=== PATIENT | male | born 1990 | race Caucasian/White ===

== ENCOUNTER 2018-11-06 23:00 | Emergency (ER) | payer OTHER ==
[~2018-11-06] VITALS: Ht 185.4 cm; Wt 113.4 kg
[2018-11-06] MEDS ORDERED: OMEPRAZOLE40 MG PO (23:12)
[2018-11-06 23:27] LABS: URINE BILIRUBIN NEGATIVE (Negative); URINE BLOOD NEGATIVE (Negative); URINE CLARITY CLEAR; URINE COLOR YELLOW; URINE GLUCOSE-RANDOM 1+ (Negative); URINE KETONES TRACE (Negative); URINE LEUKOCYTES-REFLEX NEGATIVE (Negative); URINE NITRITE-REFLEX NEGATIVE (Negative); URINE PROTEIN NEGATIVE (Negative); URINE SPECIFIC GRAVITY >= 1.030 (1.005-1.030); URINE UROBILINOGEN 0.2 E.U./dl (0.2-1.0)
[2018-11-06 23:33] LABS: ABSOLUTE BASOPHILS 0.1 thou/uL (0.0-0.2); ABSOLUTE EOSINOPHILS 0.3 thou/uL (0.0-0.7); ABSOLUTE LYMPHOCYTES 4.2 thou/uL (0.8-5.3); ABSOLUTE MONOCYTES 0.6 thou/uL (0.0-1.2); ABSOLUTE NEUTROPHILS 5.3 thou/uL (1.6-8.1); BASOPHILS 0.7 %; EOSINOPHILS 3.2 %; HEMATOCRIT 41.3 % (42.0-52.0); HEMOGLOBIN 14.3 gm/dL (14.0-18.0); LYMPHOCYTES 40.2 %; MCH 29.9 pg (26.0-34.0); MCHC 34.6 g/dL (28.0-37.0); MCV 86.5 fL (80.0-100.0); MONOCYTES 5.6 %; MPV 8.7 fl. (7.2-11.1); NUCLEATED RBCS 0 /100WBC; PLATELET COUNT* 262 thou/uL (150-400); POLYS 50.3 %; RBC 4.77 mil/uL (4.50-6.00); WBC 10.4 thou/uL (4.0-11.0)
[2018-11-07 00:07] LABS: ALBUMIN 3.7 g/dL (3.4-5.0); POTASSIUM 3.8 mmol/L (3.5-5.1); TOTAL BILIRUBIN 0.3 mg/dL (<0.1-1.0); TOTAL PROTEIN 7.2 g/dL (6.4-8.2)
[2018-11-07] MEDS ORDERED: METFORMIN HCL500 MG PO (00:16)
[2018-11-07] MEDS ORDERED: MECLIZINE HCL25 MG PO (00:18)
[2018-11-07 01:27] VITALS: BP 152/93
[2018-11-07 16:06] LABS: GLYCOHEMOGLOBIN (HGB A1C) 7.9 % (4.8-5.6)
== END 2018-11-07 01:27 | disposition home or self-care (01) ==
LOC: M.ERS 23:00
PROVIDERS: Emergency Medicine; Nurse Practitioner
DX: E11.9 Type 2 diabetes mellitus without complications (principal); R42 Dizziness and giddiness; R53.1 Weakness; K21.9 Gastro-esophageal reflux disease without esophagitis

== ENCOUNTER 2018-11-13 16:20 | Emergency (ER) | payer OTHER ==
[~2018-11-13] VITALS: Ht 185.4 cm; Wt 113.4 kg
[~2018-11-13 16:20] MED LIST: MECLIZINE HCL25 MG PO; METFORMIN HCL500 MG PO; OMEPRAZOLE40 MG PO
[2018-11-13] MEDS ORDERED: ALEVE220 MG PO (16:43)
[2018-11-13 17:03] LABS: BE -0.2 mmol/L (-2 to +3); PCO2 36.6 mmHg (35.0-45.0); PO2 101.5 mmHg (75.0-100.0); pH 7.429 (7.340-7.450)
[2018-11-13 17:04] LABS: ABSOLUTE EOSINOPHILS 0.1 thou/uL (0.0-0.7); ABSOLUTE LYMPHOCYTES 1.5 thou/uL (0.8-5.3); ABSOLUTE MONOCYTES 0.7 thou/uL (0.0-1.2); ABSOLUTE NEUTROPHILS 9.1 thou/uL (1.6-8.1); BASOPHILS 0.4 %; EOSINOPHILS 0.9 %; HEMATOCRIT 46.8 % (42.0-52.0); LYMPHOCYTES 13.1 %; MCH 29.9 pg (26.0-34.0); MCHC 34.3 g/dL (28.0-37.0); MCV 87.2 fL (80.0-100.0); MONOCYTES 5.9 %; MPV 8.8 fl. (7.2-11.1); NUCLEATED RBCS 0 /100WBC; PLATELET COUNT* 287 thou/uL (150-400); POLYS 79.7 %; RBC 5.36 mil/uL (4.50-6.00); WBC 11.5 thou/uL (4.0-11.0)
[2018-11-13 17:10] LABS: CALCIUM 8.9 mg/dL (8.5-10.1); POTASSIUM 3.8 mmol/L (3.5-5.1)
[2018-11-13 17:14] LABS: ALBUMIN 4.1 g/dL (3.4-5.0); MAGNESIUM 1.7 mg/dL (1.8-2.4); TOTAL BILIRUBIN 0.6 mg/dL (<0.1-1.0); TOTAL PROTEIN 8.1 g/dL (6.4-8.2)
[2018-11-13 18:48] VITALS: BP 124/99
--- NOTE | 2018-11-14 14:03 | EKG ---
[place] [address] ELECTROCARDIOGRAM REPORT Name: JOELLE ZUÑIGA III [id number] Admission: 11/13/18 Attend Phys: Discharge: 11/13/18 Date of : [birth year] Report #: [id number] THIS REPORT FOR: //name// [facility] ED Test Date: 2018-11-13 Test Time: 16:38:38 Pat Name: JOELLE ZUÑIGA Department: Room: Gender: M Mechanical Shop Laborer: : 1990 Requested By: Ilda Novak Order Number: [id number] MD: Faustino Nino Measurements Intervals [place] Rate: 94 P: 45 TX: 159 QRS: 32 QRSD: 79 T: 49 QT: 317 QTc: 397 Interpretive Statements Sinus rhythm Probable left atrial enlargement No previous ECG available for comparison Electronically Signed On 11-14-2018 14:02:56 CDT by Faustino Nino [email or web address] <ELECTRONICALLY SIGNED> By: Faustino Nino MD, [facility] 11/14/18 1402 [id number] [id number] Faustino Nino MD, FACC /EPI
== END 2018-11-13 18:50 | disposition home or self-care (01) ==
LOC: M.ERS 16:20
PROVIDERS: Personal Emergency Response Attendant
DX: E11.649 Type 2 diabetes mellitus with hypoglycemia without coma (principal); K21.9 Gastro-esophageal reflux disease without esophagitis

== ENCOUNTER 2019-09-08 21:41 | Emergency (ER) | payer OTHER ==
[~2019-09-08] VITALS: Ht 185.4 cm; Wt 108.9 kg
[~2019-09-08 21:41] MED LIST changes: +ALEVE220 MG PO
[2019-09-08] MEDS ORDERED: SIMVASTATIN80 MG PO ×2 (21:53→21:54)
[2019-09-08] MEDS ORDERED: SERTRALINE HCL100 MG PO (21:54)
[2019-09-08 22:19] LABS: ABSOLUTE EOSINOPHILS 0.2 thou/uL (0.0-0.7); ABSOLUTE LYMPHOCYTES 3.3 thou/uL (0.8-5.3); ABSOLUTE MONOCYTES 0.8 thou/uL (0.0-1.2); ABSOLUTE NEUTROPHILS 5.8 thou/uL (1.6-8.1); BASOPHILS 0.4 %; EOSINOPHILS 2.2 %; HEMATOCRIT 42.5 % (42.0-52.0); HEMOGLOBIN 14.6 gm/dL (14.0-18.0); LYMPHOCYTES 32.9 %; MCH 29.9 pg (26.0-34.0); MCHC 34.3 g/dL (28.0-37.0); MCV 87.2 fL (80.0-100.0); MONOCYTES 7.7 %; MPV 8.4 fl. (7.2-11.1); NUCLEATED RBCS 0 /100WBC; PLATELET COUNT* 312 thou/uL (150-400); POLYS 56.8 %; RBC 4.88 mil/uL (4.50-6.00); RDW-CV 13.5 % (10.5-14.5); WBC 10.2 thou/uL (4.0-11.0)
[2019-09-08 22:25] LABS: CALCIUM 8.4 mg/dL (8.5-10.1); CREATININE 1.2 mg/dL (0.6-1.3); POTASSIUM 3.4 mmol/L (3.5-5.1)
[2019-09-08 22:29] LABS: ALBUMIN 4.2 g/dL (3.4-5.0); MAGNESIUM 2.1 mg/dL (1.8-2.4); TOTAL BILIRUBIN 0.4 mg/dL (<0.1-1.0); TOTAL PROTEIN 7.6 g/dL (6.4-8.2)
[2019-09-08] MEDS ORDERED: CIPRODEX OTIC7.5 ML OTIC (23:16)
[2019-09-08] MEDS ORDERED: CIPRO HC OTIC S10 ML OTIC ×2 (23:19→23:21)
[2019-09-08 23:24] VITALS: BP 151/96
--- NOTE | 2019-09-09 15:42 | EKG ---
[place] [address] ELECTROCARDIOGRAM REPORT Name: JOELLE ZUÑIGA Pily ANNY Room: [facility]#: [id number] Admission: 09/08/19 Attend Phys: Discharge: 09/08/19 Date of : [birth year] Date of Service: 09/08/192143 Report #: [id number] THIS REPORT FOR: //name// [facility] ED Test Date: 2019-09-08 Test Time: 21:44:51 Pat Name: JOELLE ZUÑIGA Department: Room: Gender: Metal Pickling Equipment Operator: : 1990 Requested By: Rosalie Sam Order Number: [id number] MD: Baudilio Pa Measurements Intervals [place] Rate: 88 P: 47 CT: 154 QRS: 40 QRSD: 93 T: 40 QT: 368 QTc: 446 Interpretive Statements Sinus rhythm Compared to ECG 11/13/2018 16:38:38 No significant changes Electronically Signed On 09-09-2019 15:41:12 CDT by Baudilio Pa [email or web address] <ELECTRONICALLY SIGNED> By: Baudilio Pa MD, [facility] 09/09/19 154 [id number] 43 Baudilio Pa MD, FAC /EPI
== END 2019-09-08 23:26 | disposition home or self-care (01) ==
LOC: M.ERS 21:41
PROVIDERS: Emergency Medicine
DX: F41.9 Anxiety disorder, unspecified (principal); E11.9 Type 2 diabetes mellitus without complications; K21.9 Gastro-esophageal reflux disease without esophagitis